=== PATIENT | female | born 1990 | race Caucasian/White ===

== ENCOUNTER 2016-08-06 23:05 | Emergency (ER) | payer OTHER ==
[~2016-08-06] VITALS: Ht 170.2 cm; Wt 70.9 kg
[2016-08-06 23:11] VITALS: BP 115/74; RESP 18; O2SAT 98
--- NOTE | 2016-08-07 00:10 | ED.REPORT ---
HPI-Facial Injury Date of Service Aug 07, 2016 ED Provider: Asim Carr MD The patient is a healthy 25 year old female who presents to the ED with a sore on the inside of her lower lip onset 2-3 weeks ago. Today the patient bit the area, resulting in swelling and pain. The patient also reports clear liquid drainage one week ago that has since resolved. She denies other symptoms. Nursing Notes Stated Complaint: BIT BUMP ON LIP,PAINFUL Chief Complaint: ENT & Mouth Nursing Notes Reviewed: Yes Allergies: Coded Allergies: Penicillins (Verified Allergy, Mild, Rash, 08/06/16) General Time Seen by Provider: 00:09 Chief Complaint Other (Inner Lower Lip Sore) Hx Obtained From: Patient Arrived By: Walk-in Onset Occurred: More than a week ago... (2-3 Weeks) Symptom Duration: Since onset Location: : Lip lower Quality: Painful Severity: Current: Moderate Severity: Maximum: Moderate Pertinent Negative: Relieved by nothing Immunizations: None up to date Recent Healthcare: No recent doctor visit Past Medical History Past Medical History None reported Past Surgical History None reported Smoking History Unknown if Ever Smoker Ambulatory Status Independent Review of Systems Review of Systems Note: + Inner lower lip sore with an episode of clear drainage which has since resolved, lower lip swelling Constitutional: Denies: Fever Ears / Nose / Throat: Reports: Mouth pain (Lower lip) Complete sys rev & neg: except as marked. Respiratory: Denies: Non-productive cough, Shortness of breath GI: Denies: Diarrhea, Vomiting Physical Exam Initial Vital Signs Vital Signs (First) Date Time Temp Pulse Resp B/P Pulse Ox O2 Delivery O2 Flow Rate FiO2 08/06/16 23:11 37.4 72 18 115/74 98 Room Air Initial VS: Reviewed, Vital signs normal Skin: Warm, Dry, No cyanosis Psychiatric: Mood/affect normal, Behavior normal, Normal thought content Head / Eyes: Atraumatic, Normocephalic ENT: Airway patent, Mucous membranes moist 3mm fluid-filled cystic structure on an erythematous base inside of lower lip Neck: Supple, Full range of motion Neurologic: Oriented X3, Speech NL General/Constitutional: Awake, Alert, No acute distress Re-Eval/Medical Decision Med Decision/Clinical Course Uncomplicated mucocele inside lower lip. Re-Evaluation/Progress : Time of Eval: 00:48 Patient Status: Condition improved Re-Evaluation/Progress Note: Discussed with patient physical exam findings, diagnosis, and plan for discharge. Follow-up and return to the ER instructions given. Patient agrees with plan for care and all questions were addressed. Counseled Regarding: Diagnosis, Need for follow-up, When/why to return to ED Discharge & Departure Impression: Primary Impression: Mucocele of lip Disposition: Home Discharge Condition All VS Reviewed: Yes Condition: Improved Additional Instructions: Thank you for entrusting us with your care. Your exam today was reassuring for serious illness. This is a mucocele, cystic collection of fluid from a mucous gland it is plugged. It will go away. Try not to chew on it because that we will just keep it irritated. Follow up with the [facility] clinic if it persists for more than 2 or 3 weeks. Return to the ER with any new or worsening symptoms. Referrals: NOPCP (PCP) William Sosa MD Attestation Portions of this note were transcribed by Anna Bustos. I, Dr. Carr, personally performed the history, physical exam, and medical decision-making; I reviewed and confirmed the accuracy of the information in the transcribed note. Signed by: Camryn Aggarwal, 08/07/2016, 02:35 copies to: William Sosa MD, Howard L MD Aug 07, 2016 00:10 ANNA BUSTOS Aug 07, 2016 00:51
[2016-08-07 01:21] VITALS: BP 126/72; PULSE 72; RESP 16; O2SAT 99
== END 2016-08-07 01:23 | disposition home or self-care (01) ==
LOC: SED 23:05
DX: K13.0 Diseases of lips (principal); Z88.0 Allergy status to penicillin